=== PATIENT | male | born 2000 | race Caucasian/White ===

== ENCOUNTER 2019-02-19 00:38 | Emergency (ER) | payer OTHER ==
[~2019-02-19] VITALS: Ht 185.4 cm; Wt 100.0 kg
[2019-02-19 03:30] VITALS: BP 149/109
== END 2019-02-19 04:03 | disposition home or self-care (01) ==
LOC: M ED 00:38
DX: T38.3X1A Poisoning by insulin and oral hypoglycemic [antidiabetic] drugs, accidental (unintentional), initial encounter (principal); X58.XXXA Exposure to other specified factors, initial encounter; Y92.89 Other specified places as the place of occurrence of the external cause; E10.9 Type 1 diabetes mellitus without complications; Z88.0 Allergy status to penicillin; Z88.2 Allergy status to sulfonamides